=== PATIENT | male | born 1965 | race Hispanic/Latino ===

== ENCOUNTER 2017-12-15 05:58 | Day surgery (SDC) | payer BC ==
[2017-12-12 11:37] VITALS: BP 119/73
[2017-12-12 11:47] LABS: BASOPHILS % (AUTO) 0.7 % (0.0-5.0); EOSINOPHILS % (AUTO) 1.5 % (0.0-8.0); HEMATOCRIT 46.4 % (42-54); LYMPHOCYTES % (AUTO) 31.5 % (21.0-51.0); MEAN CORPUSCULAR HEMOGLOBIN 29.8 pg (27.0-33.0); MEAN CORPUSCULAR HGB CONC 33.6 g/dL (32.0-36.0); MEAN CORPUSCULAR VOLUME 88.7 fL (79-99); MONOCYTES % (AUTO) 9.2 % (3.0-13.0); NEUTROPHILS % (AUTO) 57.1 % (40.0-77.0); PLATELET COUNT (AUTO) 265 K/uL (130-400); RED BLOOD CELL COUNT(AUTO) 5.23 MIL/uL (4.50-6.20); RED CELL DISTRIBUTION WIDTH 14.1 % (11.0-15.5); WHITE BLOOD COUNT (AUTO) 5.5 K/uL (4.8-10.8)
[2017-12-12 11:47] LABS: APPEARANCE,URINE CLEAR (CLEAR); BILIRUBIN,URINE NEGATIVE (NEGATIVE); COLOR,URINE YELLOW (YELLOW); GLUCOSE, URINE (UA) >=1000 mg/dL (NEGATIVE); KETONES,URINE NEGATIVE (NEGATIVE); LEUKOCYTE ESTERASE ,URINE NEGATIVE (NEGATIVE); NITRATE,URINE NEGATIVE (NEGATIVE); OCCULT BLOOD,URINE NEGATIVE (NEGATIVE); PH,URINE 5.5 (5.0-8.0); PROTEIN,URINE 30 (NEGATIVE); UROBILINOGEN,URINE 0.2 mg/dL (0.2-1.0)
[2017-12-12 11:58] LABS: BACTERIA,URINE Rare /HPF (None Seen); RBC,URINE 0-1 /HPF (0-1); WBC,URINE 0-1 /HPF (0-1)
[2017-12-12 11:58] LABS: CREATININE 1.4 mg/dL (0.5-1.5)
[2017-12-12 11:59] LABS: INR 0.95 (0.85-1.15)
[2017-12-12 12:01] LABS: POTASSIUM 6.1 mmol/L (3.5-5.1)
[2017-12-15] VITALS (12 sets, daily range): BP systolic 118–144; BP diastolic 68–91
[~2017-12-15] VITALS: Ht 170.2 cm; Wt 94.4 kg
[~2017-12-15 05:58] MED LIST: ASPI-1005 PO; ATOR10TA69 PO; FURO40TA5 PO; LINA5TAB PO; LISI-617 PO; METO25TA6 PO; NAPR220T57 PO
[2017-12-15 07:42] LABS: CREATININE 1.2 mg/dL (0.5-1.5)
[2017-12-15] MEDS ORDERED: BIVALIRUDIN 250 MG/VIAL IV ONE (08:48)
[2017-12-15] MEDS ORDERED: MIDAZOLAM HCL 1 MG/ML 2ML VIAL ONE (08:53)
[2017-12-15] MEDS ORDERED: FENTANYL CITRATE PF 50 MCG/1 ML 2ML VIAL ONE (08:54)
[2017-12-15] MEDS ORDERED: SODIUM CHLORIDE 0.9% 1000ML 1,000 ML IV SCH (09:21)
[2017-12-15] MEDS ORDERED: HEPARIN SODIUM 1000UNIT/ML 10ML VIAL ONE (09:24)
[2017-12-15] MEDS ORDERED: NITROGLYCERIN 5 MG/ML 10 ML VIAL IV ONE (09:24)
[2017-12-15] MEDS ORDERED: IOPAMIDOL-370 100 ML VIAL IV ONE (09:24)
[2017-12-15] MEDS ORDERED: ISOVUE-370 50ML VIAL IV ONE (09:24)
[2017-12-15] MEDS ORDERED: GLUCAGON 1MG KIT 1 MG ML IM PRN (09:30)
[2017-12-15] MEDS ORDERED: NITROGLYCERIN 0.4 MG SL TAB SL PRN (09:30)
[2017-12-15] MEDS ORDERED: HYDRALAZINE HCL 20 MG/ML VIAL IV PRN (09:30)
[2017-12-15] MEDS ORDERED: DEXTROSE 50%-WATER 50 ML DISP.SYRIN IV PRN (09:30)
[2017-12-15] MEDS ORDERED: METO50TA18 PO (09:30)
[2017-12-15] MEDS ORDERED: ISOS30TA6 PO (09:30)
[2017-12-15] MEDS ORDERED: METOPROLOL TARTRATE 1 MG/ML 5ML VIAL IV PRN (09:30)
[2017-12-15] MEDS ORDERED: AMLO2.5T PO (09:30)
[2017-12-15] MEDS ORDERED: INSULIN HUMULIN R 100 UNIT/ML 3ML SQ SCH (11:30)
== END 2017-12-15 15:50 | disposition home or self-care (01) ==
LOC: DAH 05:58
PROVIDERS: ATTEND Internal Medicine Cardiovascular Disease
DX: I25.10 Atherosclerotic heart disease of native coronary artery without angina pectoris (principal); I25.5 Ischemic cardiomyopathy; E78.5 Hyperlipidemia, unspecified; I10 Essential (primary) hypertension
CPT/HCPCS: 36415 ×2; 71045; 80048 ×2; 81001; 82948; 85025; 85610; 85730; 93005; 93458; A4606; C1760; C1894 ×2; J1644; J1815; J2250; J3010; 99152; 99153; J0583; J3490; Q9967

== ENCOUNTER 2017-12-18 06:17 | Inpatient (IN) | payer BC ==
[2017-12-16 12:33] VITALS: BP 122/67
[2017-12-16 12:47] LABS: BASOPHILS % (AUTO) 0.2 % (0.0-5.0); EOSINOPHILS % (AUTO) 0.8 % (0.0-8.0); LYMPHOCYTES % (AUTO) 21.1 % (21.0-51.0); MEAN CORPUSCULAR HEMOGLOBIN 29.7 pg (27.0-33.0); MEAN CORPUSCULAR HGB CONC 33.9 g/dL (32.0-36.0); MEAN CORPUSCULAR VOLUME 87.8 fL (79-99); MONOCYTES % (AUTO) 6.9 % (3.0-13.0); NUCLEATED RED BLOOD CELLS 0.1 % (0.0-0.19); PLATELET COUNT (AUTO) 203 K/uL (130-400); RED BLOOD CELL COUNT(AUTO) 5.01 MIL/uL (4.50-6.20); RED CELL DISTRIBUTION WIDTH 13.8 % (11.0-15.5); WHITE BLOOD COUNT (AUTO) 6.9 K/uL (4.8-10.8)
[2017-12-16 12:52] LABS: HEMOGLOBIN A1C 10.5 % (4.0-6.0)
[2017-12-16 12:54] LABS: INR 0.97 (0.85-1.15); PARTIAL THROMBOPLASTIN TIME 26.2 SEC (26.3-35.5); PROTHROMBIN TIME 10.2 SEC (9.6-11.6)
[2017-12-16 12:57] LABS: CREATININE 1.2 mg/dL (0.5-1.5)
[2017-12-18] VITALS (23 sets, daily range): BP systolic 92–153; BP diastolic 43–90
[~2017-12-18] VITALS: Ht 167.6 cm; Wt 101.5 kg
[~2017-12-18 06:17] MED LIST changes: +AMLO2.5T PO; +CEFUROXIME SODIUM 1.5 GM VIAL IVP SCH; +ISOS30TA6 PO; -LISI-617 PO; -METO25TA6 PO; +METO50TA18 PO; -NAPR220T57 PO
[2017-12-18] MEDS ORDERED: SODIUM CHLORIDE 0.9% 1000ML 1,000 ML IV ONE (07:11)
[2017-12-18] MEDS ORDERED: VANCOMYCIN 1GM+NS 250ML 250 ML IV ONE (07:51)
[2017-12-18] MEDS ORDERED: ESMOLOL HCL 10 MG/ML 10 ML VIAL ONE (08:01)
[2017-12-18] MEDS ORDERED: AMINOCAPROIC ACID 250 MG/ML 20 ML VIAL IV ONE (08:02)
[2017-12-18] MEDS ORDERED: NOREPINEPHRINE BITARTRATE 1 MG/1 ML ML IV ONE (08:02)
[2017-12-18] MEDS ORDERED: MILRINONE-D5W 20 MG/100 ML 0 ML IV ONE (08:02)
[2017-12-18] MEDS ORDERED: EPINEPHRINE 1 MG/ML AMPULE ONE (08:02)
[2017-12-18] MEDS ORDERED: GLYCOPYRROLATE 0.2 MG/ML 5 ML VIAL ONE (08:02)
[2017-12-18] MEDS ORDERED: LIDOCAINE PF 2% 5ML ABBOJECT ONE (08:02)
[2017-12-18] MEDS ORDERED: HEPARIN SODIUM 1000UNIT/ML 10ML VIAL ONE ×2 (08:02→08:11)
[2017-12-18] MEDS ORDERED: PROTAMINE SULFATE 10 MG/ML 25ML VIAL IV ONE (08:02)
[2017-12-18] MEDS ORDERED: ROCURONIUM BROMIDE 10MG/1ML 5ML VL ONE (08:02)
[2017-12-18] MEDS ORDERED: PROPOFOL 10 MG/ML 20ML VIAL IV ONE (08:03)
[2017-12-18] MEDS ORDERED: MIDAZOLAM HCL 1 MG/ML 5ML VIAL ONE (08:03)
[2017-12-18] MEDS ORDERED: NITROGLYCERIN 50 MG/D5% WATER 1 BOT ONE (08:06)
[2017-12-18] MEDS ORDERED: THROMBIN-JMI 5000 UNIT/VIAL TP ONE (08:12)
[2017-12-18] MEDS ORDERED: PAPAVERINE HCL 30 MG/ML 2ML VIAL ONE (08:22)
[2017-12-18 08:57] LABS: ABG BASE EXCESS -2.5 mmol/L (-2.0-3.0); ABG HCO3 21.7 mmol/L (21.0-28.0); ABG OXYGEN SATURATION 99.2 % (95.0-99.0); ABG PCO2 36 mmHg (35-48)
[2017-12-18] MEDS ORDERED: SODIUM CHLORIDE 0.9% 500ML 500 ML IV SCH (10:29)
[2017-12-18] MEDS ORDERED: SODIUM CHLORIDE 0.9% 1000ML 1,000 ML IV SCH (10:30)
[2017-12-18] MEDS ORDERED: SODIUM BICARB 8.4% 50ML SYRINGE IV PRN (10:30)
[2017-12-18] MEDS ORDERED: AMINOCAPROIC ACID 15,000 MG in SODIUM CHLORIDE 0.9% 250 ML IV SCH (10:30)
[2017-12-18] MEDS ORDERED: DEXTROSE 50%-WATER 50 ML DISP.SYRIN IV PRN (10:30)
[2017-12-18] MEDS ORDERED: CALCIUM GLUCONATE 1 GM in SODIUM CHLORIDE 0.9% 50 ML IV PRN (10:30)
[2017-12-18] MEDS ORDERED: NICARDIPINE HCL 100 MG in SODIUM CHLORIDE 0.9% 100 ML IV PRN (10:30)
[2017-12-18] MEDS ORDERED: ONDANSETRON HCL MDV 20ML 2 MG/ML VIAL IV PRN (10:30)
[2017-12-18] MEDS ORDERED: MORPHINE SULFATE 4 MG/1ML SYG IV PRN (10:30)
[2017-12-18] MEDS ORDERED: PROPOFOL 1000 MG/100 ML 100 ML IV PRN (10:30)
[2017-12-18] MEDS ORDERED: EPINEPHRINE 2 MG in SODIUM CHLORIDE 0.9% 250 ML IV PRN (10:30)
[2017-12-18] MEDS ORDERED: NOREPINEPHRINE 4MG/NS 250ML 250 ML IV PRN (10:30)
[2017-12-18] MEDS ORDERED: ALBUMIN (HUMAN) 5% 250 ML IV PRN (10:30)
[2017-12-18] MEDS ORDERED: MORPHINE SULFATE 2 MG/ML 1ML SYG IV PRN (10:30)
[2017-12-18] MEDS ORDERED: SODIUM CHLORIDE 0.9% 10 ML VIAL IVP PRN (10:30)
[2017-12-18] MEDS ORDERED: POTASSIUM PHOS 15 mMOL+NS250ML 250 ML IV PRN (10:30)
[2017-12-18] MEDS ORDERED: SODIUM CHLORIDE 0.9% 250 ML IV PRN (10:30)
[2017-12-18] MEDS ORDERED: ACETAMINOPHEN 650 MG SUPPOSITORY RC PRN (10:30)
[2017-12-18] MEDS ORDERED: MAGNESIUM 2GM PREMIX 50ML 50 ML IV PRN (10:30)
[2017-12-18] MEDS ORDERED: NITROGLYCERIN 50 MG/D5% WATER 250 BOT IV SCH (10:30)
[2017-12-18] MEDS ORDERED: GLUCAGON 1MG KIT 1 MG ML IM PRN (10:30)
[2017-12-18 10:40] LABS: ABG BASE EXCESS -8.4 mmol/L (-2.0-3.0); ABG HCO3 16.2 mmol/L (21.0-28.0); ABG OXYGEN SATURATION 99.1 % (95.0-99.0); ABG PCO2 31 mmHg (35-48)
[2017-12-18] MEDS ORDERED: SODIUM BICARB 50MEQ 50ML VIAL ONE ×3 (10:41→11:58)
[2017-12-18] MEDS ORDERED: FENTANYL CITRATE PF 50 MCG/1 ML 2ML VIAL ONE ×3 (10:50)
[2017-12-18] MEDS: INSULIN REGULAR, HUMAN 3ML 100 UNIT in SODIUM CHLORIDE 0.9% 99 ML IV SCH ×4 (11:35→15:35)
[2017-12-18 11:47] LABS: ABG BASE EXCESS -4.9 mmol/L (-2.0-3.0); ABG HCO3 19.8 mmol/L (21.0-28.0); ABG OXYGEN SATURATION 98.5 % (95.0-99.0); ABG PCO2 35 mmHg (35-48)
[2017-12-18 11:52] LABS: MEAN CORPUSCULAR HEMOGLOBIN 29.9 pg (27.0-33.0); MEAN CORPUSCULAR HGB CONC 34.4 g/dL (32.0-36.0); MEAN CORPUSCULAR VOLUME 86.7 fL (79-99); PLATELET COUNT (AUTO) 175 K/uL (130-400); RED BLOOD CELL COUNT(AUTO) 4.15 MIL/uL (4.50-6.20); RED CELL DISTRIBUTION WIDTH 13.3 % (11.0-15.5); WHITE BLOOD COUNT (AUTO) 17.1 K/uL (4.8-10.8)
[2017-12-18] MEDS ORDERED: SODIUM BICARB 50MEQ 50ML VIAL IV PRN (12:02)
[2017-12-18 12:05] LABS: CREATININE 1.2 mg/dL (0.5-1.5); MAGNESIUM 1.5 mg/dL (1.80-2.40); PHOSPHORUS 4.9 mg/dL (2.5-4.9); POTASSIUM 4.1 mmol/L (3.5-5.1)
[2017-12-18 13:23] LABS: ABG BASE EXCESS -3.3 mmol/L (-2.0-3.0); ABG HCO3 21.3 mmol/L (21.0-28.0); ABG OXYGEN SATURATION 98.6 % (95.0-99.0); ABG PCO2 37 mmHg (35-48)
[2017-12-18] MEDS: HYDROCODONE/ACETAMINOPHEN 5/325 MG TAB PO PRN ×2 (14:52→20:36)
[2017-12-18] MEDS: VANCOMYCIN 1GM+NS 250ML 250 ML IV SCH (18:27)
[2017-12-19] VITALS (29 sets, daily range): BP systolic 93–160; BP diastolic 48–82
[2017-12-19] MEDS: HYDROCODONE/ACETAMINOPHEN 5/325 MG TAB PO PRN ×3 (03:06→22:07)
[2017-12-19 04:33] LABS: HEMATOCRIT 33.6 % (42-54); MEAN CORPUSCULAR HEMOGLOBIN 30.4 pg (27.0-33.0); MEAN CORPUSCULAR HGB CONC 35.3 g/dL (32.0-36.0); MEAN CORPUSCULAR VOLUME 86.2 fL (79-99); PLATELET COUNT (AUTO) 139 K/uL (130-400); RED CELL DISTRIBUTION WIDTH 14.1 % (11.0-15.5); WHITE BLOOD COUNT (AUTO) 16.2 K/uL (4.8-10.8)
[2017-12-19 04:59] LABS: MAGNESIUM 2.2 mg/dL (1.80-2.40); PHOSPHORUS 3.5 mg/dL (2.5-4.9); POTASSIUM 3.6 mmol/L (3.5-5.1)
[2017-12-19] MEDS: POTASSIUM CHLORIDE 20MEQ/100ML 100 ML IV PRN ×2 (05:15→06:41)
[2017-12-19] MEDS: VANCOMYCIN 1GM+NS 250ML 250 ML IV SCH ×2 (05:17→17:35)
[2017-12-19] MEDS: PANTOPRAZOLE SODIUM 40 MG TABLET.DR PO SCH (09:18)
[2017-12-19] MEDS: CARVEDILOL 3.125 MG TABLET PO SCH ×2 (09:18→22:08)
[2017-12-20] VITALS (18 sets, daily range): BP systolic 94–116; BP diastolic 60–84
[2017-12-20 04:31] LABS: BASOPHILS % (AUTO) 0.2 % (0.0-5.0); EOSINOPHILS % (AUTO) 0.1 % (0.0-8.0); HEMATOCRIT 29.8 % (42-54); LYMPHOCYTES % (AUTO) 8.3 % (21.0-51.0); MEAN CORPUSCULAR HEMOGLOBIN 31.6 pg (27.0-33.0); MEAN CORPUSCULAR HGB CONC 35.6 g/dL (32.0-36.0); MEAN CORPUSCULAR VOLUME 88.9 fL (79-99); MONOCYTES % (AUTO) 7.7 % (3.0-13.0); NEUTROPHILS % (AUTO) 83.7 % (40.0-77.0); PLATELET COUNT (AUTO) 105 K/uL (130-400); RED BLOOD CELL COUNT(AUTO) 3.36 MIL/uL (4.50-6.20); RED CELL DISTRIBUTION WIDTH 14.1 % (11.0-15.5); WHITE BLOOD COUNT (AUTO) 13.7 K/uL (4.8-10.8)
[2017-12-20 04:47] LABS: ALBUMIN 2.4 g/dL (3.5-5.0); BILIRUBIN,TOTAL 0.6 mg/dL (0.2-1.0); POTASSIUM 4.1 mmol/L (3.5-5.1); TOTAL PROTEIN, SERUM 5.9 g/dL (6.0-8.3)
[2017-12-20] MEDS: ASPIRIN 81MG TAB.CHEW PO SCH (08:46)
[2017-12-20] MEDS: ATORVASTATIN CALCIUM 20 MG TABLET PO SCH (08:47)
[2017-12-20] MEDS: PANTOPRAZOLE SODIUM 40 MG TABLET.DR PO SCH (08:48)
[2017-12-20] MEDS: CARVEDILOL 3.125 MG TABLET PO SCH ×2 (08:48→20:49)
[2017-12-20] MEDS: HYDROCODONE/ACETAMINOPHEN 5/325 MG TAB PO PRN ×2 (08:49→23:16)
[2017-12-20] MEDS ORDERED: AMIODARONE HCL 150 MG in DEXTROSE 5%-WATER 100 ML IV SCH (15:15)
[2017-12-20] MEDS ORDERED: AMIODARONE HCL 900 MG in DEXTROSE 5%-WATER 500 ML IV SCH (15:15)
[2017-12-20] MEDS ORDERED: DIGOXIN 250 MCG/ML 2ML AMP IV SCH (15:15)
[2017-12-20] MEDS: INSULIN HUMULIN R 100 UNIT/ML 3ML SQ SCH ×2 (16:35→20:45)
[2017-12-20] MEDS: DIGOXIN 250 MCG/ML 2ML AMP IV SCH (20:50)
[2017-12-21] VITALS (7 sets, daily range): BP systolic 104–136; BP diastolic 64–84
[2017-12-21] MEDS: DIGOXIN 250 MCG/ML 2ML AMP IV SCH ×2 (03:20→10:20)
[2017-12-21] MEDS: INSULIN HUMULIN R 100 UNIT/ML 3ML SQ SCH ×4 (06:00→21:23)
[2017-12-21] MEDS: CARVEDILOL 3.125 MG TABLET PO SCH ×2 (10:18→20:48)
[2017-12-21] MEDS: PANTOPRAZOLE SODIUM 40 MG TABLET.DR PO SCH (10:18)
[2017-12-21] MEDS: FUROSEMIDE 20 MG TABLET PO SCH ×2 (10:18→16:45)
[2017-12-21] MEDS: ATORVASTATIN CALCIUM 20 MG TABLET PO SCH (10:18)
[2017-12-21] MEDS: HYDROCODONE/ACETAMINOPHEN 5/325 MG TAB PO PRN ×3 (10:18→23:32)
[2017-12-21] MEDS: ASPIRIN 81MG TAB.CHEW PO SCH (10:19)
[2017-12-21] MEDS: ENOXAPARIN SODIUM 30 MG/0.3 ML SQ SCH (10:20)
[2017-12-21] MEDS: AMIODARONE HCL 200 MG TABLET PO SCH (20:48)
[2017-12-22 03:35] VITALS: BP 130/82
[2017-12-22 04:09] LABS: HEMATOCRIT 29.4 % (42-54); MEAN CORPUSCULAR HEMOGLOBIN 30.9 pg (27.0-33.0); MEAN CORPUSCULAR HGB CONC 35.3 g/dL (32.0-36.0); MEAN CORPUSCULAR VOLUME 87.5 fL (79-99); PLATELET COUNT (AUTO) 138 K/uL (130-400); RED BLOOD CELL COUNT(AUTO) 3.35 MIL/uL (4.50-6.20); RED CELL DISTRIBUTION WIDTH 13.8 % (11.0-15.5); WHITE BLOOD COUNT (AUTO) 9.1 K/uL (4.8-10.8)
[2017-12-22 04:20] LABS: CREATININE 0.9 mg/dL (0.5-1.5); POTASSIUM 3.8 mmol/L (3.5-5.1)
[2017-12-22] MEDS: INSULIN HUMULIN R 100 UNIT/ML 3ML SQ SCH ×4 (05:59→22:45)
[2017-12-22 07:00] VITALS: BP 127/77
[2017-12-22] MEDS: PANTOPRAZOLE SODIUM 40 MG TABLET.DR PO SCH (08:23)
[2017-12-22] MEDS: AMIODARONE HCL 200 MG TABLET PO SCH (08:23)
[2017-12-22] MEDS: CARVEDILOL 3.125 MG TABLET PO SCH (08:24)
[2017-12-22] MEDS: FUROSEMIDE 20 MG TABLET PO SCH ×2 (08:24→16:59)
[2017-12-22] MEDS: ATORVASTATIN CALCIUM 20 MG TABLET PO SCH (08:24)
[2017-12-22] MEDS: ASPIRIN 81MG TAB.CHEW PO SCH (08:24)
[2017-12-22] MEDS: ENOXAPARIN SODIUM 30 MG/0.3 ML SQ SCH (08:25)
[2017-12-22] MEDS ORDERED: METOPROLOL TARTRATE 50 MG TAB PO SCH (09:00)
[2017-12-22] MEDS: LISINOPRIL 2.5 MG TABLET PO SCH ×2 (09:33→21:01)
[2017-12-22 11:00] VITALS: BP 118/65
[2017-12-22 16:00] VITALS: BP 133/77
[2017-12-22] MEDS ORDERED: LINAGLIPTIN 5 MG TABLET PO SCH (16:45)
[2017-12-22 19:33] VITALS: BP 136/77
[2017-12-22] MEDS: METOPROLOL TARTRATE 50 MG TAB PO SCH (20:55)
[2017-12-22] MEDS: HYDROCODONE/ACETAMINOPHEN 5/325 MG TAB PO PRN (20:57)
[2017-12-22 23:49] VITALS: BP 131/57
[2017-12-23 03:26] VITALS: BP 128/78
[2017-12-23] MEDS: INSULIN HUMULIN R 100 UNIT/ML 3ML SQ SCH ×4 (06:44→21:17)
[2017-12-23] MEDS: ACETAMINOPHEN 325 MG TAB PO PRN ×2 (06:56→12:00)
[2017-12-23 07:00] VITALS: BP 149/75
[2017-12-23] MEDS ORDERED: MAGNESIUM CITRATE 296 ML SOLUTION PO SCH (07:30)
[2017-12-23] MEDS: LISINOPRIL 2.5 MG TABLET PO SCH (07:55)
[2017-12-23] MEDS: FUROSEMIDE 20 MG TABLET PO SCH ×2 (07:55→16:11)
[2017-12-23] MEDS: AMIODARONE HCL 200 MG TABLET PO SCH (07:55)
[2017-12-23] MEDS: ATORVASTATIN CALCIUM 20 MG TABLET PO SCH (07:55)
[2017-12-23] MEDS: METOPROLOL TARTRATE 50 MG TAB PO SCH ×2 (07:55→21:14)
[2017-12-23] MEDS: ASPIRIN 81MG TAB.CHEW PO SCH (07:55)
[2017-12-23] MEDS: PANTOPRAZOLE SODIUM 40 MG TABLET.DR PO SCH (07:56)
[2017-12-23] MEDS: ENOXAPARIN SODIUM 30 MG/0.3 ML SQ SCH (07:56)
[2017-12-23] MEDS: LINAGLIPTIN 5 MG TABLET PO SCH (08:05)
[2017-12-23] MEDS ORDERED: LISINOPRIL 2.5 MG TABLET PO SCH (09:00)
[2017-12-23] MEDS: LISINOPRIL 5 MG TABLET PO SCH ×2 (09:00→21:14)
[2017-12-23 11:00] VITALS: BP 104/57
[2017-12-23 16:00] VITALS: BP 127/74
[2017-12-23] MEDS: HYDROCODONE/ACETAMINOPHEN 5/325 MG TAB PO PRN ×2 (16:12→21:17)
[2017-12-23 19:49] VITALS: BP 129/80
[2017-12-23 23:19] VITALS: BP 153/79
[2017-12-24 03:37] VITALS: BP 139/78
[2017-12-24] MEDS: HYDROCODONE/ACETAMINOPHEN 5/325 MG TAB PO PRN (05:15)
[2017-12-24] MEDS: INSULIN HUMULIN R 100 UNIT/ML 3ML SQ SCH ×3 (06:26→16:50)
[2017-12-24] MEDS ORDERED: LACTULOSE 20 GM/30 ML UDCUP ONE (06:56)
[2017-12-24] MEDS ORDERED: LACTULOSE 20 GM/30 ML UDCUP PO PRN (07:00)
[2017-12-24] MEDS: FUROSEMIDE 20 MG TABLET PO SCH (07:51)
[2017-12-24] MEDS: ATORVASTATIN CALCIUM 20 MG TABLET PO SCH (07:51)
[2017-12-24 07:52] VITALS: BP 106/68
[2017-12-24] MEDS: METOPROLOL TARTRATE 50 MG TAB PO SCH (07:52)
[2017-12-24] MEDS: LINAGLIPTIN 5 MG TABLET PO SCH (07:52)
[2017-12-24] MEDS: ASPIRIN 81MG TAB.CHEW PO SCH (07:52)
[2017-12-24] MEDS: LISINOPRIL 5 MG TABLET PO SCH (07:52)
[2017-12-24] MEDS: PANTOPRAZOLE SODIUM 40 MG TABLET.DR PO SCH (07:53)
[2017-12-24] MEDS: AMIODARONE HCL 200 MG TABLET PO SCH (07:53)
[2017-12-24] MEDS: ENOXAPARIN SODIUM 30 MG/0.3 ML SQ SCH (07:53)
[2017-12-24 11:34] VITALS: BP 105/62
[2017-12-24] MEDS ORDERED: LISI-617 PO (15:57)
[2017-12-24] MEDS ORDERED: AMIO200T2 PO (15:57)
[2017-12-24] MEDS ORDERED: ATOR10 PO (15:57)
[2017-12-24 16:00] VITALS: BP 130/80
== END 2017-12-24 18:13 | disposition home or self-care (01) | DRG 235 ==
LOC: DAHIP 06:17 → 2CV 09:38 → 2CH 17:23 → 2AH 12-20 17:11
PROVIDERS: ADMIT Thoracic Surgery (Cardiothoracic Vascular Surgery); ATTEND Thoracic Surgery (Cardiothoracic Vascular Surgery)
PROC: 02100Z9 Bypass Coronary Artery, One Artery from Left Internal Mammary, Open Approach (ICD-10-PCS; principal; 2017-12-18 08:00)
PROC: 021209W Bypass Coronary Artery, Three Arteries from Aorta with Autologous Venous Tissue, Open Approach (ICD-10-PCS; 2017-12-18 08:00)
PROC: 06BQ4ZZ Excision of Left Saphenous Vein, Percutaneous Endoscopic Approach (ICD-10-PCS; 2017-12-18 08:00)
DX: I21.4 Non-ST elevation (NSTEMI) myocardial infarction (principal); J96.90 Respiratory failure, unspecified, unspecified whether with hypoxia or hypercapnia; I11.0 Hypertensive heart disease with heart failure; I50.9 Heart failure, unspecified; D72.829 Elevated white blood cell count, unspecified; E11.51 Type 2 diabetes mellitus with diabetic peripheral angiopathy without gangrene; E66.9 Obesity, unspecified; Z68.36 Body mass index [BMI] 36.0-36.9, adult; E78.5 Hyperlipidemia, unspecified; I25.2 Old myocardial infarction; I25.5 Ischemic cardiomyopathy; I48.91 Unspecified atrial fibrillation; Z79.82 Long term (current) use of aspirin; Z79.899 Other long term (current) drug therapy; Z82.49 Family history of ischemic heart disease and other diseases of the circulatory system
CPT/HCPCS: 36415; 36600; 71045; 80048; 80053; 80061; 82330; 82435; 82803; 82947; 82948; 83036; 83605; 83735; 84100; 84132; 84295; 85018; 85025; 85027; 85347; 85610; 85730; 86850; 86900; 86901; 86922; 93005; 93880; 94002; 94010; 94150; A4218; A7048; J0171; J0282; J0697; J1160; J1644; J1650; J1815; J2001; J2250; J2260; J2440; J2704; J2720; J3010; J3370; J3475; J3480; J3490; J7030; J7040; J7060; J7070; P9045

== ENCOUNTER → 2018-03-24 | Outpatient (CLI) | payer BC ==
[~2018-03-24] MED LIST changes: +AMIO200T5 PO; -AMLO2.5T PO; +ATOR10 PO; -ATOR10TA69 PO; -CEFUROXIME SODIUM 1.5 GM VIAL IVP SCH; -ISOS30TA6 PO; +LISI-617 PO
== END | disposition home or self-care (01) ==
LOC: SHCH 10:51
PROVIDERS: ATTEND Internal Medicine Cardiovascular Disease
DX: I25.5 Ischemic cardiomyopathy (principal); I87.2 Venous insufficiency (chronic) (peripheral)
CPT/HCPCS: 93306